=== PATIENT | female | born 1970 | race Caucasian/White ===

== ENCOUNTER 2021-04-12 09:08 | Emergency (ER) | payer OTHER ==
[~2021-04-12] VITALS: Ht 170.2 cm; Wt 60.8 kg
--- NOTE | 2021-04-12 09:16 | NUR ---
AT BEDSIDE FOR EVAL.
[2021-04-12] MEDS ORDERED: AMIN30LI2 PO (09:22)
[2021-04-12] MEDS ORDERED: GABA-532 PO (09:22)
[2021-04-12] MEDS ORDERED: ONDA-97 PO (09:22)
[2021-04-12] MEDS ORDERED: DOCU-141 PO (09:22)
[2021-04-12] MEDS ORDERED: ACET-868 PO (09:22)
[2021-04-12] MEDS ORDERED: APIX5TAB PO (09:22)
[2021-04-12] MEDS ORDERED: CRAN425C6 PO (09:22)
[2021-04-12] MEDS ORDERED: TRAM50TA2 PO (09:22)
[2021-04-12] MEDS ORDERED: MAGN400O6 PO (09:22)
[2021-04-12] MEDS ORDERED: METO25TA20 PO (09:22)
[2021-04-12] MEDS ORDERED: LOPE-195 PO (09:22)
[2021-04-12] MEDS ORDERED: METH-647 PO (09:22)
[2021-04-12] MEDS ORDERED: LOSA50TA39 PO (09:22)
[2021-04-12] MEDS ORDERED: CHOL100062 PO (09:22)
[2021-04-12] MEDS ORDERED: FERR325T23 PO (09:22)
[2021-04-12] MEDS ORDERED: LETR2.5T PO (09:22)
[2021-04-12] MEDS ORDERED: ASPI-1169 PO (09:22)
[2021-04-12] MEDS ORDERED: SPIR25TA PO (09:22)
[2021-04-12] MEDS ORDERED: FOLI0.4T6 PO (09:22)
[2021-04-12] MEDS ORDERED: ABEM150T PO (09:22)
--- NOTE | 2021-04-12 09:25 | NUR ---
PT IS WHEELED TO CT SCAN VIA [facility].
--- NOTE | 2021-04-12 10:00 | NUR ---
SKIN GLUE APPLIED.
--- NOTE | 2021-04-12 10:12 | NUR ---
[facility] CALLED ETA 30 MINS PER [facility].
--- NOTE | 2021-04-12 10:23 | NUR ---
REPORT GIVEN TO LONNIE BOCANEGRA OF [facility] FOR PT DISCHARGED BACK.
[2021-04-12] MEDS ORDERED: ONDANSETRON 4 MG TAB.RAPDIS ONE (10:44)
--- NOTE | 2021-04-12 10:49 | NUR ---
REPORT GIVEN TO EMS FOR PT TRANSFER BACK TO [facility].
[2021-04-12 10:52] VITALS: BP 123/73
[2021-04-12] MEDS ORDERED: ONDANSETRON 4 MG TAB.RAPDIS SL ONE (11:00)
== END 2021-04-12 10:53 | disposition home or self-care (01) ==
LOC: ER 09:15
DX: S01.81XA Laceration without foreign body of other part of head, initial encounter (principal); I10 Essential (primary) hypertension; Z86.73 Personal history of transient ischemic attack (TIA), and cerebral infarction without residual deficits; Z88.8 Allergy status to other drugs, medicaments and biological substances; Z79.899 Other long term (current) drug therapy; Z79.82 Long term (current) use of aspirin; W01.0XXA Fall on same level from slipping, tripping and stumbling without subsequent striking against object, initial encounter; Y93.89 Activity, other specified; Y92.89 Other specified places as the place of occurrence of the external cause; Y99.8 Other external cause status
CPT/HCPCS: 12011; 70450; 99284; Q0162